=== PATIENT | male | born 1940 | race Caucasian/White ===

== ENCOUNTER → 2016-12-18 | Outpatient (CLI) | payer MEDICARE ==
[~2016-12-18] MED LIST: ALPR0.25 PO; ASMA220A5; AZIT250T3 PO; FLUT50SP EACH NARE; HYDR-3366 PO; LEVO100T5 PO; LISI10TA3 PO; LYRI100C PO; MULTTAB67 PO; NORC5TAB PO; OMEP20TA PO; PRAV10TA PO; PROM25TA5 PO; TRAZ50TA12 PO
[2016-12-18 14:00] LABS: AUTOMATED NEUTROPHIL # 3.9 TH/MM3 (1.8-7.7); BASOPHIL % 0.5 % (0.0-2.0); EOSINOPHIL # 0.2 TH/MM3 (0-0.4); EOSINOPHIL % 2.9 % (0.0-4.0); HEMATOCRIT 31.5 % (39.0-51.0); HEMO FLAGS DIFF FINAL; LYMPH % 28.7 % (9.0-44.0); LYMPHOCYTE # 1.9 TH/MM3 (1.0-4.8); MEAN CELL VOLUME 91.8 FL (80.0-100.0); MEAN CORPUSCULAR HEMOGLOBIN 31.1 PG (27.0-34.0); MEAN CORPUSCULAR HGB CONC 33.8 % (32.0-36.0); MONO % 10.4 % (0.0-8.0); NEUT % 57.5 % (16.0-70.0); PLATELET COUNT 231 TH/MM3 (150-450); RED BLOOD COUNT 3.43 MIL/MM3 (4.50-5.90); RED CELL DISTRIBUTION WIDTH 12.7 % (11.6-17.2); WHITE BLOOD COUNT 6.7 TH/MM3 (4.0-11.0)
[2016-12-18 14:02] LABS: BLOOD, URINE NEG (NEG); GLUCOSE,URINE NEG (NEG); KETONE, URINE NEG (NEG); MUCUS URINE FEW /lpf (OCC); NITRITE,URINE NEG (NEG); PH, URINE 5.5 (5.0-8.5); URINE COLOR YELLOW (YELLW/STRAW)
[2016-12-18 14:04] LABS: COMMENT (UR) CULT NOT INDICATED; CULTURE IF INDICATED CULT NOT INDICATED
[2016-12-18 14:10] LABS: APTT (PATIENT) 38.3 SEC (24.3-30.1)
--- NOTE | 2016-12-18 14:24 | RADRPT ---
EXAM DATE/TIME: 12/18/2016 13:26 [facility] COMPARISON: No previous studies available for comparison. INDICATIONS : Evaluate for pneumonia, pneumothorax or communicable disease. Preop chest for spine surgery on 7 MEDICAL HISTORY : None. SURGICAL HISTORY : None. ENCOUNTER: Initial ACUITY: 1 day PAIN SCORE: 0/10 LOCATION: Bilateral chest FINDINGS: PA and lateral views of the chest demonstrate the lungs to be symmetrically aerated without evidence of mass, infiltrate or effusion. The cardiomediastinal contours are unremarkable. Osseous structure s demonstrate mild degenerative changes in the thoracic spine. CONCLUSION: 1. No acute cardiopulmonary findings. Herbert Thompson MD on December 18, 2016 at 14:22 Board Certified Radiologist. This report was verified electronically.
[2016-12-18 14:38] LABS: ALKALINE PHOSPHATASE 66 U/L (45-117); ALT (GPT) 24 U/L (12-78); ANION GAP 10 MEQ/L (5-15); AST (GOT) 17 U/L (15-37); BICARBONATE 26.5 MEQ/L (21.0-32.0); BLOOD UREA NITROGEN 17 MG/DL (7-18); CHLORIDE 108 MEQ/L (98-107); GLOMERULAR FILTRATION RATE 54 ML/MIN (>89); GLUCOSE,FASTING 101 MG/DL (74-99); POTASSIUM 4.3 MEQ/L (3.5-5.1); SODIUM (NA) 144 MEQ/L (136-145); TOTAL BILIRUBIN ADULT 0.6 MG/DL (0.2-1.0)
--- NOTE | 2016-12-20 15:05 | EKG ---
Date Performed: 12/18/2016 Time Performed: 12:42:38 PTAGE: 76 years EKG: SINUS BRADYCARDIA RIGHT BUNDLE BRANCH BLOCK ABNORMAL ECG NO SIGNIFICANT CHANGE FROM PRIOR E LECTROCARDIOGRAM. PREVIOUS TRACING : 08/21/2003 11.08 DOCTOR: Frandy Castorena Interpretating Date/Time 12/20/2016 15:04:38
== END ==
LOC: CPRE 12:25
PROVIDERS: ATTEND Neurological Surgery
DX: M51.36 Other intervertebral disc degeneration, lumbar region (principal); M51.16 Intervertebral disc disorders with radiculopathy, lumbar region; M43.16 Spondylolisthesis, lumbar region; Z79.01 Long term (current) use of anticoagulants; Z01.812 Encounter for preprocedural laboratory examination; Z01.818 Encounter for other preprocedural examination; R94.31 Abnormal electrocardiogram [ECG] [EKG]
CPT/HCPCS: 36415; 71020; 80053; 81001; 85025; 85610; 85730; 93005

== ENCOUNTER 2016-12-21 05:33 | Observation (INO) | payer MEDICARE ==
--- NOTE | 2016-12-20 13:29 | MH ---
cc: ARCENIO MATHIAS ROHIT K. M.D. SORATHIA, ABDUL J. M.D. DATE OF ADMISSION: 12/21/2016 ADMISSION DIAGNOSIS Lumbar spinal stenosis. HISTORY OF PRESENT ILLNESS This is a 76-year-old male who presented to us for evaluation of back pain. He suffers from chronic low back pain which got worse about 7 months ago. He states over the past 10 weeks he began to experience left-sided pain in his buttocks and groin and inner thigh and melton area that radiates down the inside of his leg. He has seen a chiropractor and had two bouts of physical therapy and pain management once but was unsuccessful and therefore the patient does not want to return. His pain is rated as currently a 9 to 10 out of 10. He tried taking Lortab 5 without much relief and caused nausea. He has also noticed numbness and paresthesias extending into the left medial thigh and anterior melton and plantar aspect of the left foot. He has noted subjective weakness in the left leg as well as difficulty initiating his urinary stream. PAST MEDICAL HISTORY Significant for: 1. Asthma. 2. COPD. 3. Gastroesophageal reflux disease. 4. Hypertension. 5. Hypothyroidism. 6. Hyperlipidemia. 7. Sleep apnea. 8. Prostate cancer status post surgery in 2002. 9. Knee replacement in 2014. 10. Sinus surgery in 1989. CURRENT MEDICATIONS 1. He takes lisinopril 10 mg daily. 2. Omeprazole 20 mg daily. 3. Levothyroxine 0.1 mg daily. 4. Multivitamin daily. 5. Pravastatin 10 mg daily. 6. Lyrica 100 mg daily. 7. Azithromycin 250 mg daily. 8. Alprazolam 0.25 mg daily. 9. Trazodone 50 mg daily. 10. Fluticasone nasal spray 2 puffs b.i.d. 11. Asmanex inhaler 2 puffs b.i.d. ALLERGIES TO MEDICATIONS He has no known drug allergies. He states HYDROCODONE makes him nauseousness. FAMILY HISTORY His mother is at 85 years old. His father is at 95 years old. He says that both parents from natural causes. He has a brother who is at 70 years old and another brother who is at 70 years old also. SOCIAL HISTORY He is retired. He has children. He does not smoke, although previously smoked. He does not drink alcohol. REVIEW OF SYSTEMS CONSTITUTIONAL: He denies any fever or chills. EARS, NOSE, THROAT: No pharyngitis, exudates or bloody drainage from his nose. CARDIOVASCULAR: Denies any chest pain or palpitations. RESPIRATORY: No cough or shortness of breath. GENITOURINARY: No dysuria. Positive for urinary urgency and frequency. MUSCULOSKELETAL: Positive for low back pain. SKIN: No rashes or pruritus. NEUROLOGIC: No difficulty with speech or memory. GASTROINTESTINAL: No abdominal pain. Positive for diarrhea and constipation. PSYCHIATRIC: No depression symptoms. Positive for anxiety symptoms. ENDOCRINE: No polyuria or polydipsia. HEMATOLOGIC: Positive for bruising and bleeding tendencies. PHYSICAL EXAMINATION HEAD: Normocephalic, atraumatic. NECK: Supple. No carotid bruits heard on auscultation. LUNGS: Clear to auscultation bilaterally. HEART: Regular rate and rhythm, normal S1-S2. ABDOMEN: Soft, nontender. Positive bowel sounds. SKIN: Reveals no cyanosis or erythema. MUSCULOSKELETAL: He has 5/5 strength in the upper and lower extremities. He has normal stable balance. NEUROLOGIC: He is awake, alert, oriented. Cranial nerves II-XII are grossly intact. His speech is fluent. Comprehension is good. He has decreased sensation in the left L4 and L5 dermatome. DATA REVIEWED We reviewed MRI of the lumbar spine from September 29, 2016 which revealed multilevel advanced degenerative disk disease with disk height collapse at the L2-L3, L4-L5, L5-S1 level with a grade 1 L2-L3 spondylolisthesis. There is multiple disk protrusions noted throughout the lumbosacral spine along with facet arthropathy. There is moderate spinal stenosis at the L2-L3, L3-L4 and L4-5 levels in particular central and eccentric to the left side. IMPRESSION A 76-year-old male with chronic history of low back pain along with left lower extremity polyradiculopathy along the L2, L3 and L4 dermatomes in particular and to a lesser extent the L5 and S1 dermatomes. He has multilevel advanced degenerative disk disease along with facet arthropathy and stenosis along with disk protrusion, most pronounced at the L2-L3, L3-4 and L4-5 levels. He has failed conservative treatment measures including multiple bouts of physical therapy and cannot live with his current level of discomfort and activity restriction. PLAN We have discussed the surgical option of a left L2 through L5 hemilaminotomy with microdiskectomy along with the risks and benefits. It is possible that despite surgery may not improve or even be worse after surgery given the extensive multilevel degenerative disk disease. We have discussed the risks involved with surgery which include but not limited to bleeding, infection, muscle weakness, voice hoarseness, difficulty swallowing, heart attack, stroke, blood clots, scar tissue formation among others. He has a history of von Willebrand's disease and is followed by Dr. Bhatt from hematology who has cleared him from a hematological standpoint for surgery and has recommended that the patient receive DDAVP 30 minutes prior to surgery as well as 12 hours post surgery and 24 hours post surgery. The patient wants to proceed with surgical intervention understanding the procedure as well as the risks involved and he is therefore scheduled accordingly. Dictated by: Benjie Mccurdy PA-C MD MARILIN Batres/RACHAEL /12:48 PM /1:04 PM
[~2016-12-21 05:33] MED LIST changes: -NORC5TAB PO; -PROM25TA5 PO
[2016-12-21 05:42] VITALS: BP 143/65; PULSE 56; RESP 18; TEMP 98.7; O2SAT 100
[2016-12-21] MEDS ORDERED: METOPROLOL TARTRATE 25 MG TAB PO PRN (06:15)
[2016-12-21] MEDS ORDERED: SODIUM CHLOR 0.9% 1000 ML INJ 1,000 ML IV SCH (06:15)
[2016-12-21] MEDS ORDERED: INSULIN HUMAN REGULAR 1,000 UNITS/10 ML VIAL SQ PRN (06:15)
[2016-12-21] MEDS ORDERED: VANCOMYCIN 1,000 MG/NS 250ML (for <70 kg) IV SCH ×2 (07:00)
[2016-12-21] MEDS ORDERED: DESMOPRESSIN INJ 20 MCG in SODIUM CHLORIDE 0.9% INJ 50 ML IV SCH ×2 (07:15→19:00)
[2016-12-21] MEDS ORDERED: methylPREDNISolone ACETATE 40 MG/ML VIAL ONE (07:21)
[2016-12-21] MEDS ORDERED: BUPIVACAINE/EPINEPHRINE 0.5% 50 ML VIAL ONE (07:21)
[2016-12-21] MEDS ORDERED: VANCOMYCIN HCL 1000 MG VIAL ONE (07:21)
[2016-12-21] MEDS ORDERED: THROMBIN (TOPICAL) 5,000 UNIT VIAL ONE (07:21)
[2016-12-21] MEDS ORDERED: GELFOAM SIZE 100 ONE (07:22)
[2016-12-21] MEDS ORDERED: BUPIVACAINE/EPINEPHRINE 0.25% PF 10 ML VIAL ONE (07:25)
[2016-12-21] MEDS ORDERED: BUPIVACAINE/EPINEPHRINE 0.25% PF 30 ML VIAL ONE (07:29)
[2016-12-21] MEDS ORDERED: ACETAMINOPHEN 1000 MG/100 ML VIAL IV ONE (07:35)
[2016-12-21] MEDS ORDERED: ARTIFICIAL TEARS OPTH OINT 3.5 APPLIC/3.5 GM TUBO ONE (07:35)
[2016-12-21] MEDS ORDERED: MIDAZOLAM HCL 2 MG/2 ML VIAL ONE (07:35)
[2016-12-21] MEDS ORDERED: FAMOTIDINE 20 MG/2 ML VIAL ONE (07:35)
[2016-12-21] MEDS ORDERED: fentaNYL CITRATE 250 MCG/5 ML AMP ONE (07:35)
[2016-12-21] MEDS ORDERED: SODIUM CHLORID 0.9% 500 ML IV SCH (08:00)
[2016-12-21] MEDS ORDERED: LACTATED RINGER'S 1000 ML IV SCH (08:00)
[2016-12-21] MEDS ORDERED: VANCOMYCIN 500 MG VIAL IRRIGATION ONE (11:07)
[2016-12-21] MEDS ORDERED: SUGAMMADEX SODIUM 200 MG/2 ML VIAL IV PUSH ONE ×2 (11:07)
[2016-12-21] MEDS ORDERED: DO NOT ADM ANY ANTICOAGULANT DRUGS XX PRN (11:45)
[2016-12-21] MEDS ORDERED: NS + KCL 20 MEQ INJ 1,000 ML IV SCH (11:54)
[2016-12-21] MEDS ORDERED: *morphine SULFATE 8 MG/ML PERIprocedure ONLY ONE ×2 (11:54→12:12)
[2016-12-21] MEDS ORDERED: PHENYLEPH/NS 1000 MCG/10 ML SYR IV ONE (12:00)
[2016-12-21] MEDS ORDERED: PROMETHAZINE INJ 25 MG/ML VIAL IM PRN (12:00)
[2016-12-21] MEDS ORDERED: ALPRAZolam 0.25 MG TAB PO PRN (12:00)
[2016-12-21] MEDS ORDERED: PROPOFOL 200 MG/20 ML AMP IV ONE (12:00)
[2016-12-21] MEDS ORDERED: ePHEDrine/NS 50 MG/5 ML SYR IV ONE (12:00)
[2016-12-21] MEDS ORDERED: ALUMINUM/MAGNESIUM/SIMETH 30 ML CUP PO PRN (12:00)
[2016-12-21] MEDS ORDERED: CYCLOBENZAPRINE HCL 10 MG TAB PO PRN (12:00)
[2016-12-21] MEDS ORDERED: ONDANSETRON HCL 4 MG/2 ML VIAL IV PUSH ONE (12:00)
[2016-12-21] MEDS ORDERED: BISACODYL 10 MG SUPP PR PRN (12:00)
[2016-12-21] MEDS ORDERED: MAGNESIUM HYDROXIDE SUSP 30 ML CUP PO PRN (12:00)
[2016-12-21] MEDS ORDERED: ACETAMINOPHEN 325 MG TAB PO PRN (12:00)
[2016-12-21] MEDS ORDERED: RESP: ALBUTEROL 2.5 MG/3 ML NEB (PRN) NEB (12:00)
[2016-12-21] MEDS ORDERED: cloNIDine HCL 0.1 MG TAB PO PRN (12:00)
[2016-12-21] MEDS ORDERED: ZOLPIDEM TARTRATE 5 MG TAB PO PRN (12:00)
[2016-12-21] MEDS ORDERED: LACTATED RINGER'S 1000 ML INJ 1,000 ML IV ONE (12:00)
[2016-12-21] MEDS ORDERED: ONDANSETRON HCL 4 MG/2 ML VIAL IV PRN (12:00)
[2016-12-21] MEDS ORDERED: SODIUM CHLORIDE 0.9% FLUSH 5 ML FLUSH IVF PRN (12:00)
[2016-12-21] MEDS ORDERED: MENTHOL LOZENGE SUCK-ON PRN (12:00)
[2016-12-21] MEDS ORDERED: MORPHINE SULFATE 4 MG/ML INJ IV PRN (12:00)
[2016-12-21] MEDS ORDERED: HYDR-3366 PO (12:19)
[2016-12-21] MEDS ORDERED: PROM25TA5 PO (12:19)
--- NOTE | 2016-12-21 12:20 | PD.OP ---
cc: Henri Mcneil DO; Sabrina Bhatt MD Operative Report Date of Surgery: Dec 21, 2016 Preoperative Diagnosis: Lumbar L2-3, L3-4 and L4-5 facet and ligamentum flavum hypertrophy with disc protrusion and associated severe spinal stenosis; low back pain with neurogenic claudication Postoperative Diagnosis: Same Procedure: Lumbar L2, L3, L4 and L5 decompressive laminectomy with medial facetectomies; microsurgical technique Anesthesia: Gen. endotracheal by Radha Polanco Surgeon: Mehran Diaz M.D. Relief Worker(s): Tana Ni Operation and Findings: Following administration of general endotracheal anesthesia, patient received vancomycin 1 g and 20 g of DDAVP intravenously. Sequential compression devices were placed for DVT prophylaxis. He was then turned in prone position on Stan frame and the Kenton table and all pressure points adequately padded. The lumbar region was then shaved and prepped with a Betadine and ChloraPrep. Sterile draping undertaken with Ioban. Midline incision overlying the L2-5 levels was then made after infiltrating the skin with 0.5% Marcaine with epinephrine solution. The skin incision was made extending down through the fascia and then using the subperiosteal plane on the left side the muscular attachments to the spinous process and lamina were detached. Intraoperative fluoroscopy was used for level confirmation and further dissection undertaken using microtechnique with microscope magnification. The inferior portion of the left L2, L3, L4, and superior portion of the L5 lamina were then drilled out and the underlying ligamentum flavum also removed. There was facet arthropathy noted in the medial portion of facet was also resected and the lateral recess decompressed. Epidural venous stasis which he with the bipolar cautery along with Gelfoam and thrombin and bone wax used at the laminotomy edges for hemostasis. The area was then copiously irrigated with vancomycin solution. The retractors removed and the muscle fascia proximal using 2-0 Vicryl interrupted stitches. 3-0 Vicryl subcuticular stitches were also placed in an interrupted fashion and planned skin closure was with Mastisol and Steri- Strips. A sterile dressing was then applied and the patient then turned in the supine position and extubated and taken to recovery room in stable condition. There were no intraoperative complications and all sponge and needle count was correct at the end of the procedure. Estimated blood loss about 80ml. Mehran Diaz MD Dec 21, 2016 12:20
[2016-12-21 13:30] VITALS: BP 148/85; PULSE 95; RESP 18; TEMP 96.4; O2SAT 99
--- NOTE | 2016-12-21 16:02 | RADRPT ---
EXAM DATE/TIME: 12/21/2016 08:30 [facility] COMPARISON: No previous studies available for comparison. INDICATIONS : Level Localization L2 to L5 for laminectomy. MEDICAL HISTORY : None. SURGICAL HISTORY : None. ENCOUNTER: Initial ACUITY: 1 day PAIN SCORE: Non-responsive. LOCATION: Lumbar spine. FINDINGS: A single lateral view of the lumbar spine was performed. There is normal alignment of the vertebral bodies without evidence of subluxation. There are 2 localizing devices identified adjacent to the po sterior spinous processes at the level of L2 and L5. Vertebral body height and disc space height is m aintained. CONCLUSION: Localizer C. posterior to the L2 and L5 spinous processes.. Aurea Cuello MD on December 21, 2016 at 16:00 Board Certified Radiologist. This report was verified electronically.
[2016-12-21 16:06] VITALS: O2SAT 98
[2016-12-21] MEDS: ACETAMINOPHEN/HYDROcodone 325 MG/10 MG TAB PO PRN ×2 (18:04→23:16)
[2016-12-21 19:59] VITALS: O2SAT 98
[2016-12-21 20:00] VITALS: BP 155/66; PULSE 83; RESP 16; TEMP 95.9; O2SAT 97
[2016-12-21] MEDS ORDERED: traZODone HCL 50 MG TAB PO SCH (21:00)
[2016-12-21] MEDS: FLUTICASONE PROPIONATE 50 MCG/ACT 16 GM NASAL SPRAY EACH NARE SCH (21:29)
[2016-12-21] MEDS: DOCUSATE SODIUM 100 MG CAP PO SCH (21:29)
[2016-12-21] MEDS: SODIUM CHLORIDE 0.9% FLUSH 5 ML FLUSH IVF SCH (21:29)
[2016-12-22] VITALS: BP 121/59; PULSE 87; RESP 22; TEMP 98.1; O2SAT 95
[2016-12-22 04:00] VITALS: BP 123/57; PULSE 57; RESP 18; TEMP 98.1; O2SAT 95
[2016-12-22] MEDS: ACETAMINOPHEN/HYDROcodone 325 MG/10 MG TAB PO PRN ×2 (05:28→09:58)
[2016-12-22] MEDS ORDERED: LEVOTHYROXINE SODIUM 100 MCG TAB PO SCH (06:00)
[2016-12-22 08:00] VITALS: BP 109/57; PULSE 64; RESP 18; TEMP 97.9; O2SAT 93
[2016-12-22 08:32] VITALS: O2SAT 94
[2016-12-22] MEDS: FLUTICASONE PROPIONATE 50 MCG/ACT 16 GM NASAL SPRAY EACH NARE SCH (09:00)
[2016-12-22] MEDS ORDERED: AZITHROMYCIN 250 MG TAB PO SCH (09:00)
[2016-12-22] MEDS ORDERED: PRAVASTATIN SOD 10 MG TAB PO SCH (09:00)
[2016-12-22] MEDS ORDERED: LISINOPRIL 10 MG TAB PO SCH (09:00)
[2016-12-22] MEDS ORDERED: PREGABALIN 100 MG CAP PO SCH (09:00)
[2016-12-22] MEDS ORDERED: PANTOPRAZOLE SOD 20 MG DELAYED RELEASE TAB PO SCH (09:00)
[2016-12-22] MEDS ORDERED: MULTIVITAMIN TAB PO SCH (09:00)
[2016-12-22] MEDS: DOCUSATE SODIUM 100 MG CAP PO SCH (09:51)
[2016-12-22] MEDS: SODIUM CHLORIDE 0.9% FLUSH 5 ML FLUSH IVF SCH (09:52)
[2016-12-22 12:00] VITALS: BP 127/58; PULSE 62; RESP 18; TEMP 97.7
--- NOTE | 2016-12-22 12:20 | HHI.NSPN ---
(Camilla Gardner) Note Status Status: Progress Note (Camilla Gardner) Interval History Interval History Mr. Ascencio is a 76 year old male with low back pain with neurogenic claudication, he has a L2-3, L3-4 and L4-5 facet and ligamentum flavum hypertrophy with disc protrusion and associated severe spinal stenosis. He underwent a lumbar L2, L3, L4 and L5 decompressive laminectomy with medial facetectomies; microsurgical technique on Dec 21, 2016. 12/22: reports surgical pain not bad, he denies focal weakness in LE's, stable paresthesias in legs. He would like to go home. (Camilla Gardner) Labs, Micro, & Vital Signs Results Date Time Temp Pulse Resp B/P Pulse Ox O2 Delivery O2 Flow Rate FiO2 12/22/16 08:32 94 12/22/16 08:00 97.9 64 18 109/57 93 12/22/16 04:00 98.1 57 18 123/57 95 12/22/16 00:00 98.1 87 22 121/59 95 12/21/16 20:00 95.9 83 16 155/66 97 12/21/16 19:59 98 Nasal Cannula 2.00 12/21/16 16:06 98 21 12/21/16 13:30 96.4 95 18 148/85 99 12/21/16 13:25 Nasal Cannula 2.00 12/21/16 13:00 84 16 123/67 98 Nasal Cannula 2 12/21/16 12:30 92 16 145/65 97 Nasal Cannula 2 12/22/16 07:00 Intake Total 2258 ml Output Total 1200 ml Balance 1058 ml Constitutional Vital Signs Date Time Temp Pulse Resp B/P Pulse Ox O2 Delivery O2 Flow Rate FiO2 12/22/16 08:32 94 12/22/16 08:00 97.9 64 18 109/57 93 12/22/16 04:00 98.1 57 18 123/57 95 12/22/16 00:00 98.1 87 22 121/59 95 12/21/16 20:00 95.9 83 16 155/66 97 12/21/16 19:59 98 Nasal Cannula 2.00 12/21/16 16:06 98 21 12/21/16 13:30 96.4 95 18 148/85 99 12/21/16 13:25 Nasal Cannula 2.00 12/21/16 13:00 84 16 123/67 98 Nasal Cannula 2 12/21/16 12:30 92 16 145/65 97 Nasal Cannula 2 12/22/16 07:00 Intake Total 2258 ml Output Total 1200 ml Balance 1058 ml (Camilla Gardner) Review of Systems/Exam Exam Awake, in bed appears comfortable. Speech is fluent. Follows commands without difficulties. Appears hard of hearing. CN: pupils equal, facial motor symmetric Neck: soft, supple Motor: 5/5 in both iliopsoas, quads, hamstrings, plantarflexion and dorsiflexion Sensory: reports intact to light touch in LE's b/l Wound: with clean and dry dressing in place (Camilla Gardner) Medications Current Medications Current Medications Medications (Trade) Dose Ordered Sig/Victorino Route PRN Reason Start Time Stop Time Status Last Admin Dose Admin Alprazolam (Xanax) 0.25 mg DAILY PRN PO ANXIETY 12/21/16 12:00 Azithromycin (Zithromax) 250 mg DAILY PO 12/22/16 09:00 12/22/16 09:52 Fluticasone Propionate (Flonase Nilo Spr) 1 spray BID EACH NARE 12/21/16 21:00 Levothyroxine Sodium (Synthroid) 100 mcg DAILY@0600 PO 12/22/16 06:00 12/22/16 05:23 Lisinopril (Prinivil) 10 mg DAILY PO 12/22/16 09:00 12/22/16 09:52 Multivitamins (Theragran) 1 tab DAILY PO 12/22/16 09:00 12/22/16 09:00 Pantoprazole Sodium (Protonix) 20 mg DAILY PO 12/22/16 09:00 12/22/16 09:52 Pravastatin Sodium (Pravachol) 10 mg DAILY PO 12/22/16 09:00 12/22/16 09:51 Pregabalin (Lyrica) 100 mg DAILY PO 12/22/16 09:00 12/22/16 09:51 Trazodone HCl (Desyrel) 50 mg HS PO 12/21/16 21:00 12/21/16 21:29 IV Flush (NS Flush) 2 ml UNSCH PRN IVF FLUSH AFTER USING IV ACCESS 12/21/16 12:00 IV Flush (NS Flush) 2 ml BID IVF 12/21/16 21:00 12/22/16 09:52 Bisacodyl (Dulcolax Supp) 10 mg DAILY PRN [place] CONSTIPATION 12/21/16 12:00 Docusate Sodium (Colace) 100 mg BID PO 12/21/16 21:00 12/22/16 09:51 Magnesium Hydroxide (Milk Of Magnesia Liq) 30 ml DAILY PRN PO CONSTIPATION 12/21/16 12:00 Al Hydrox/Mg Hydrox/Simethicone (Mag-Al Plus Susp Liq) 30 ml Q6H PRN PO DYSPEPSIA 12/21/16 12:00 Ondansetron HCl (Zofran Inj) 4 mg Q6H PRN IV NAUSEA OR VOMITING 12/21/16 12:00 Promethazine HCl (Phenergan Inj) 25 mg Q4H PRN IM NAUSEA OR VOMITING 12/21/16 12:00 Acetaminophen/ Hydrocodone Bitart ([place] 10-325 Mg) 1 tab Q4H PRN PO PAIN SCALE 1 TO 5 12/21/16 12:00 12/22/16 09:58 Acetaminophen/ Hydrocodone Bitart ([place] 10-325 Mg) 2 tab Q4H PRN PO PAIN SCALE 6 TO 10 12/21/16 12:00 12/22/16 05:28 Morphine Sulfate (Morphine Inj) 4 mg Q2H PRN IV breakthrough pain 7 TO 10 12/21/16 12:00 Cyclobenzaprine HCl (Flexeril) 10 mg Q8H PRN PO MUSCLE SPASM 12/21/16 12:00 Clonidine (Catapres) 0.1 mg Q6H PRN PO SYS BP GREATER THAN 170 MMHG 12/21/16 12:00 Acetaminophen (Tylenol) 650 mg Q4H PRN PO TEMPERATURE > 101.5 F 12/21/16 12:00 Menthol (Maynard Aldair) 1 lozenge UNSCH PRN SUCK-ON SORE THROAT 12/21/16 12:00 Zolpidem Tartrate (Ambien) 5 mg HS PRN PO INSOMNIA 12/21/16 12:00 (Camilla Gardner) Medical Decision Making MDM Remarks 76 y/o male s/p lumbar L2, L3, L4 and L5 decompressive laminectomy with medial facetectomies; microsurgical technique with Dr. Diaz on Dec 21, 2016, sx pain and neuro stable (Camilla Gardner) Plan Plan Remarks dc home activity restrictions, s/s to watch for were discussed follow up with Dr. Diaz in 1 week or as scheduled (Camilla Gardner) Attending Statement The exam, history, and the medical decision-making described in the above note were completed with the assistance of the mid-level provider. I reviewed and agree with the findings presented. I attest that I had a [id number] encounter with the patient on the same day, and personally performed and documented my assessment and findings in the medical record. (Brandon Schuler MD) Camilla Gardner Dec 22, 2016 12:20 Brandon Schuler MD Dec 23, 2016 18:37
--- NOTE | 2016-12-22 12:21 | HHI.DCPOC ---
Discharge Care Plan Diagnosis: (1) Status post lumbar laminectomy Goals to Promote Your Health * To prevent worsening of your condition and complications * To maintain your health at the optimal level Directions to Meet Your Goals Take your medications as prescribed Follow your dietary instruction Follow activity as directed Keep your appointments as scheduled Take your immunizations and boosters as scheduled If your symptoms worsen call your PCP, if no PCP go to Urgent Care Center or Emergency Room Smoking is Dangerous to Your Health. Avoid second hand smoke Call the 24-hour hour crisis hotline for domestic abuse at Camilla Gardner Dec 22, 2016 12:21
[2016-12-22 12:49] VITALS: PULSE 79
[2017-01-30] MEDS ORDERED: NORC5TAB PO (14:35)
== END 2016-12-22 15:01 | disposition home or self-care (01) ==
LOC: HSDC 05:33 → HSDI 12:00 → N06B 13:45
PROVIDERS: ADMIT Neurological Surgery; ATTEND Neurological Surgery
DX: M51.16 Intervertebral disc disorders with radiculopathy, lumbar region (principal); M48.06 Spinal stenosis, lumbar region; M43.16 Spondylolisthesis, lumbar region; I10 Essential (primary) hypertension; D68.0 Von Willebrand disease; E03.9 Hypothyroidism, unspecified; E78.5 Hyperlipidemia, unspecified; E78.00 Pure hypercholesterolemia, unspecified; G47.30 Sleep apnea, unspecified; J44.9 Chronic obstructive pulmonary disease, unspecified; J45.909 Unspecified asthma, uncomplicated; K21.9 Gastro-esophageal reflux disease without esophagitis; Z85.46 Personal history of malignant neoplasm of prostate; Z96.659 Presence of unspecified artificial knee joint
CPT/HCPCS: 00630; 63030; 63035; 72020; 76000; 86850; 86900; 86901; 87641; 94150; 97162; G0378; G8987; G8988; J0131; J0690; J1030; J2250; J2270; J2370; J2405; J2597; J3010; J3370; J3480; J7050; J7120